=== PATIENT | male | born 1975 | race Caucasian/White ===

== ENCOUNTER 2023-10-26 09:21 | Day surgery (SDC) | payer BC ==
[~2023-10-26 09:21] MED LIST: Sodium Chloride 0.9% 10 ML Syringe FLUSH PRN; Sodium Chloride 0.9% 2.5 ML Syringe FLUSH PRN; Sodium Chloride 0.9% 20 ML SDV IV PRN
[2023-10-26] MEDS ORDERED: propofoL 50 ML ONE (09:25)
[2023-10-26] MEDS ORDERED: Lidocaine 2% 5 ML SDV ONE (09:25)
[2023-10-26] MEDS ORDERED: fentaNYL 100 MCG/2 ML SDV ONE (09:26)
[2023-10-26] MEDS: Lactated Ringers 1,000 ML IV SCH (10:13)
== END 2023-10-26 11:57 | disposition home or self-care (01) ==
LOC: MW.SDS 09:21
PROVIDERS: ATTEND Surgery
DX: Z12.11 Encounter for screening for malignant neoplasm of colon (principal); D12.8 Benign neoplasm of rectum; K29.50 Unspecified chronic gastritis without bleeding; K44.9 Diaphragmatic hernia without obstruction or gangrene; Z80.0 Family history of malignant neoplasm of digestive organs; Z87.891 Personal history of nicotine dependence
CPT/HCPCS: 00813; J2704; J3010; J3490; J7120